=== PATIENT | male | born 1970 | race African-American/Black ===

== ENCOUNTER 2017-03-30 12:33 | Emergency (ER) | payer OTHER ==
[2017-03-30 13:02] VITALS: BP 126/63
[2017-03-30] MEDS ORDERED: Ibuprofen TAB* 600 MG PO ONE (13:29)
--- NOTE | 2017-03-30 14:08 | RAD ---
HISTORY: Chronic right knee pain COMPARISONS: None VIEWS: 4, Frontal, lateral, axial, and oblique views of the right knee FINDINGS: BONE DENSITY: Normal. BONES: There is no displaced fracture. JOINTS: There is no arthropathy. There is no suprapatellar joint effusion or lipohemarthrosis. ALIGNMENT: There is no dislocation. SOFT TISSUES: Unremarkable. OTHER FINDINGS: None. IMPRESSION: NO ACUTE OSSEOUS INJURY. IF SYMPTOMS PERSIST, RECOMMEND REPEAT IMAGING.
[2017-03-30 14:32] LABS: Hematocrit 41 % (42-52); Hemoglobin 13.7 g/dl (14.0-18.0); Mean Corpuscular HGB Conc 34 g/dl (31-36); Mean Corpuscular Hemoglobin 30 pg (27-31); Mean Corpuscular Volume 90 fL (80-94); Mean Platelet Volume 9 um3 (7.4-10.4); Red Blood Count 4.55 10^6/ul (4.0-5.4); Red Cell Distribution Width 13 % (10.5-15); White Blood Count 6.7 10^3/ul (3.5-10.8)
[2017-03-30 14:48] LABS: ALT 13 U/L (7-52); AST 29 U/L (13-39); Alkaline Phosphatase 68 U/L (34-104); Anion Gap 6 mmol/L (2-11); Blood Urea Nitrogen 11 mg/dL (6-24); CO2 Carbon Dioxide 28 mmol/L (22-32); Calcium 9.1 mg/dL (8.6-10.3); Chloride 104 mmol/L (101-111); EGFR African American 102.6 (>60); EGFR Non-African American 79.8 (>60); Globulin 2.9 g/dL (2-4); Glucose 86 mg/dL (70-100); Potassium 4.1 mmol/L (3.5-5.0); Sodium 138 mmol/L (133-145); Total Protein 6.9 g/dL (6.4-8.9)
[2017-03-30 14:58] LABS: Acetaminophen < 15 mcg/mL
--- NOTE | 2017-03-30 15:03 | ED ---
Lower Extremity - HPI Summary HPI Summary: 47M presents with right knee pain for a couple weeks. He has been self medicating with ETOH and Tylenol. He says he has been using a lot of Tylenol. He denies any injury to the area. He has been on his feet more. He states his pain is worst when going up stairs and feels the pain under his knee cap. He denies any numbness or tingling. - History of Current Complaint Chief Complaint: EDExtremityLower Stated Complaint: RT KNEE PAIN Time Seen by Provider: 03/30/17 13:09 Pain Intensity: 8 - Allergies/Home Medications Allergies/Adverse Reactions: Allergies Allergy/AdvReac Type Severity Reaction Status Date / Time No Known Allergies Allergy Verified 04/27/16 12:58 PMH/Surg Hx/FS Hx/Imm Hx Endocrine/Hematology History: Denies: Hx Anticoagulant Therapy Cardiovascular History: Denies: Hx Pacemaker/ICD Respiratory History: Denies: Hx Asthma GI History: Denies: Hx Gall Bladder Disease, Hx Gastroesophageal Reflux Disease History: Denies: Hx Acute Renal Failure, Hx Chronic Renal Failure Sensory History: Denies: Hx Hearing Aid Psychiatric History: Denies: Hx Panic Disorder - Surgical History Surgery Procedure, Year, and Place: none Infectious Disease History: Denies: Traveled Outside the [place] in Last 30 Days - Family History Known Family History: Positive: Diabetes, Other - cancer - Social History Alcohol Use: Rare Substance Use Type: Reports: None Smoking Status (MU): Former Smoker Review of Systems Negative: Fever Negative: Chest Pain Negative: Shortness Of Breath Positive: Myalgia - right knee pain All Other Systems Reviewed And Are Negative: Yes Physical Exam Triage Information Reviewed: Yes Vital Signs On Initial Exam: Initial Vitals Temp Pulse Resp BP Pulse Ox 96.7 F 87 16 126/63 95 03/30/17 13:00 03/30/17 13:00 03/30/17 13:00 03/30/17 13:00 03/30/17 13:00 Vital Signs Reviewed: Yes Appearance: Positive: Well-Appearing Skin: Positive: Warm, Dry Head/Face: Positive: Normal Head/Face Inspection Eyes: Positive: Normal, Conjunctiva Clear Respiratory/Lung Sounds: Positive: Clear to Auscultation, Breath Sounds Present Cardiovascular: Positive: Normal, RRR Musculoskeletal: Positive: Strength/ROM Intact - right knee, Other - neg ballotment, neg anterior and posterior drawer, neg mcmurrphy, good pulses, tender over patella Diagnostics - Vital Signs Vital Signs Temp Pulse Resp BP Pulse Ox 03/30/17 13:00 96.7 F 87 16 126/63 95 - Laboratory Lab Results: Lab Results 03/30/17 03/30/17 Range/Units 14:15 14:15 WBC 6.7 (3.5-10.8) 10^3/ul RBC 4.55 (4.0-5.4) 10^6/ul Hgb 13.7 L (14.0-18.0) g/dl Hct 41 L (42-52) % MCV 90 (80-94) fL MCH 30 (27-31) pg MCHC 34 (31-36) g/dl RDW 13 (10.5-15) % Plt Count 230 (150-450) 10^3/ul MPV 9 (7.4-10.4) um3 Neut % (Auto) 61.3 (38-83) % Lymph % (Auto) 25.2 (25-47) % [place] % (Auto) 12.7 H (1-9) % Eos % (Auto) 0.5 (0-6) % Baso % (Auto) 0.3 (0-2) % Absolute Neuts (auto) 4.1 (1.5-7.7) 10^3/ul Absolute Lymphs (auto) 1.7 (1.0-4.8) 10^3/ul Absolute Monos (auto) 0.8 (0-0.8) 10^3/ul Absolute Eos (auto) 0 (0-0.6) 10^3/ul Absolute Basos (auto) 0 (0-0.2) 10^3/ul Absolute Nucleated RBC 0 10^3/ul Nucleated RBC % 0 Sodium 138 (133-145) mmol/L Potassium 4.1 (3.5-5.0) mmol/L Chloride 104 (101-111) mmol/L Carbon Dioxide 28 (22-32) mmol/L Anion Gap 6 (2-11) mmol/L BUN 11 (6-24) mg/dL Creatinine 1.00 (0.67-1.17) mg/dL Est GFR ( Amer) 102.6 (>60) Est GFR (Non-Af Amer) 79.8 (>60) BUN/Creatinine Ratio 11.0 (8-20) Glucose 86 (70-100) mg/dL Calcium 9.1 (8.6-10.3) mg/dL Total Bilirubin 0.80 (0.2-1.0) mg/dL AST 29 (13-39) U/L ALT 13 (7-52) U/L Alkaline Phosphatase 68 (34-104) U/L Total Protein 6.9 (6.4-8.9) g/dL Albumin 4.0 (3.2-5.2) g/dL Globulin 2.9 (2-4) g/dL Albumin/Globulin Ratio 1.4 (1-3) Acetaminophen < 15 mcg/mL Result Diagrams: 03/30/17 14:15 03/30/17 14:15 Lab Statement: Any lab studies that have been ordered have been reviewed, and results considered in the medical decision making process. Lower Extremity Course/Dx - Course Course Of Treatment: 47M presents with right knee pain for a couple weeks. He has been self medicating with ETOH and Tylenol. He says he has been using a lot of Tylenol. He denies any injury to the area. He has been on his feet more. He states his pain is worst when going up stairs and feels the pain under his knee cap. He denies any numbness or tingling. on exam has full ROM of knee. Tyenlol level normal so is not overdosing. xray normal. discussed limit amount of tyenlol and do not add ETOH with it. suspect patellafemoral syndrome as cause. patient understand and agrees with plan - Diagnoses Differential Diagnosis/HQI/PQRI: Positive: Fracture (Closed), Sprain, Strain Provider Diagnoses: Right knee pain Discharge - Discharge Plan Condition: Good Disposition: HOME Prescriptions: Ibuprofen TAB* [Motrin TAB* 600 MG] 600 mg PO Q6H PRN #25 tab MDD 4 PRN Reason: Pain Patient Education Materials: Knee Pain (ED) Referrals: [facility] [place] [facility]ERR[facility] [Outside] Additional Instructions: Take Tylenol or ibuprofen every 6 hours as needed for pain, max daily dose of ibuprofen is 3200mg and tyenlol is 3000mg Do not combine tyenlol with alcohol Apply ice, rest, elevate Can buy a over the counter brace for knee to wear Follow up with primary care physician Return to ED if develop any new or worsening symptoms
== END 2017-03-30 15:11 | disposition home or self-care (01) ==
LOC: ED 12:33
DX: M25.561 Pain in right knee (principal); Z87.891 Personal history of nicotine dependence
CPT/HCPCS: 36415; 80053; 80329; 85025; 99282; A9270-GY; G0480

== ENCOUNTER 2017-08-25 16:36 | Emergency (ER) | payer OTHER ==
[2017-08-25 16:43] VITALS: BP 151/90
--- NOTE | 2017-08-25 17:55 | ED ---
Lower Extremity - HPI Summary HPI Summary: 47M presents with lumps on foot. He states that has been there for months and have been getting worst. He has not seen anyone about this. He states it hurts when he places pressure on the area. He denies any fever or spreading redness. He denies any history of gout. He states the area has been getting better. He does not have a primary. He is not diabetic. He denies any injury. He denies any numbness or tingling. - History of Current Complaint Chief Complaint: EDExtremityLower Stated Complaint: BUMPS ON TOES BOTH FEET Time Seen by Provider: 08/25/17 17:33 Pain Intensity: 9 - Allergies/Home Medications Allergies/Adverse Reactions: Allergies Allergy/AdvReac Type Severity Reaction Status Date / Time No Known Allergies Allergy Verified 08/25/17 16:41 PMH/Surg Hx/FS Hx/Imm Hx Endocrine/Hematology History: Denies: Hx Anticoagulant Therapy Cardiovascular History: Denies: Hx Pacemaker/ICD Respiratory History: Denies: Hx Asthma GI History: Denies: Hx Gall Bladder Disease, Hx Gastroesophageal Reflux Disease History: Denies: Hx Acute Renal Failure, Hx Chronic Renal Failure Sensory History: Denies: Hx Hearing Aid Psychiatric History: Denies: Hx Panic Disorder - Surgical History Surgery Procedure, Year, and Place: none Infectious Disease History: No Infectious Disease History: Denies: Traveled Outside the [place] in Last 30 Days - Family History Known Family History: Positive: Diabetes, Other - cancer - Social History Alcohol Use: None Substance Use Type: Reports: None Smoking Status (MU): Current Some Day Smoker Review of Systems Negative: Fever Negative: Chest Pain Negative: Shortness Of Breath Positive: Other - lump of feet All Other Systems Reviewed And Are Negative: Yes Physical Exam Triage Information Reviewed: Yes Vital Signs On Initial Exam: Initial Vitals Temp Pulse Resp BP Pulse Ox 98.4 F 82 16 151/90 97 08/25/17 16:41 08/25/17 16:41 08/25/17 16:41 08/25/17 16:41 08/25/17 16:41 Vital Signs Reviewed: Yes Appearance: Positive: Well-Appearing Skin: Positive: Warm, Dry, Other - callus like lesions on right Head/Face: Positive: Normal Head/Face Inspection Eyes: Positive: Normal, Conjunctiva Clear Respiratory/Lung Sounds: Positive: Clear to Auscultation, Breath Sounds Present Cardiovascular: Positive: Normal, RRR Musculoskeletal: Positive: Strength/ROM Intact - feet, Other - good pulses, capillary refill<2secs Neurological: Positive: Normal Psychiatric: Positive: Normal - [place] Coma Scale Coma Scale Total: 15 Diagnostics - Vital Signs Vital Signs Temp Pulse Resp BP Pulse Ox 08/25/17 16:41 98.4 F 82 16 151/90 97 - Laboratory Lab Statement: Any lab studies that have been ordered have been reviewed, and results considered in the medical decision making process. Lower Extremity Course/Dx - Course Course Of Treatment: 47M presents with lumps on foot. He states that has been there for months and have been getting worst. He has not seen anyone about this. He states it hurts when he places pressure on the area. He denies any fever or spreading redness. He denies any history of gout. He states the area has been getting better. He does not have a primary. He is not diabetic. He denies any injury. He denies any numbness or tingling. on exam has callus like lesion on right middle toe, big toe and left 2nd toe. no erythema or edema to area. told to do warm soaks and change footwear. will have follow up with podiatry. patient understand and agrees with plan. - Diagnoses Differential Diagnosis/HQI/PQRI: Positive: Cellulitis, Gout, Other - callus Provider Diagnoses: Callus of foot Discharge - Discharge Plan Condition: Good Disposition: HOME Referrals: [facility] [place] [facility] [Outside] Cory Cota DPM [Doctor of Podiatric Medicine] - Additional Instructions: You appear to have a calluses on your feet Change your foot wear They make over the counter pads that can place on area to protect it Do warm soaks on area and can use pumice stone on area Follow up with primary or podiatry Return to ED if develop any new or worsening symptoms
== END 2017-08-25 18:06 | disposition home or self-care (01) ==
LOC: ED 16:36
DX: L84 Corns and callosities (principal); F17.200 Nicotine dependence, unspecified, uncomplicated
CPT/HCPCS: 99282

== ENCOUNTER 2018-11-16 16:44 | Emergency (ER) | payer OTHER ==
[2018-11-16 16:58] VITALS: BP 153/111
== END 2018-11-16 19:33 | disposition left against medical advice (07) ==
LOC: ED 16:44
DX: L02.413 Cutaneous abscess of right upper limb (principal); Z53.21 Procedure and treatment not carried out due to patient leaving prior to being seen by health care provider

== ENCOUNTER 2018-11-17 09:57 | Emergency (ER) | payer OTHER ==
--- NOTE | 2018-11-17 12:06 | ED ---
Back Pain - History of Current Complaint Chief Complaint: EDRashSkinAbscess Stated Complaint: ABCESS ON ARM Time Seen by Provider: 11/17/18 11:59 Hx Obtained From: Patient Onset/Duration: Sudden Onset, Lasting Days - Last night, Still Present Timing: Constant Back Pain Location: Is Discrete @ - low back, below L5 Severity Currently: Severe Pain Intensity: 10 Pain Scale Used: 0-10 Numeric Aggravating Symptom(s): Movement Alleviating Symptom(s): Nothing Associated Signs And Symptoms: Positive: Other - pain to her thighs Related History: Previous Back Injury - bulge between L4 and L5 - Allergies/Home Medications Allergies/Adverse Reactions: Allergies Allergy/AdvReac Type Severity Reaction Status Date / Time No Known Allergies Allergy Verified 11/17/18 10:04 PMH/Surg Hx/FS Hx/Imm Hx Endocrine/Hematology History: Reports: Autoimmune Disease - Lupus Denies: Hx Anticoagulant Therapy Cardiovascular History: Denies: Hx Pacemaker/ICD Respiratory History: Denies: Hx Asthma GI History: Denies: Hx Gall Bladder Disease, Hx Gastroesophageal Reflux Disease History: Denies: Hx Acute Renal Failure, Hx Chronic Renal Failure Musculoskeletal History: Reports: Hx Back Problems - bulge between L4 and L5 Sensory History: Denies: Hx Hearing Aid Psychiatric History: Denies: Hx Panic Disorder - Surgical History Surgery Procedure, Year, and Place: none Infectious Disease History: No Infectious Disease History: Denies: Traveled Outside the [place] in Last 30 Days - Family History Known Family History: Positive: Diabetes, Other - cancer - Social History Alcohol Use: None Hx Substance Use: No Substance Use Type: Reports: None Hx Tobacco Use: Yes Smoking Status (MU): Current Some Day Smoker Review of Systems Negative: Fever Genitourinary: Negative Positive: Myalgia - low back radiating to her thighs All Other Systems Reviewed And Are Negative: Yes Physical Exam Vital Signs On Initial Exam: Initial Vitals Temp Pulse Resp BP Pulse Ox 98.3 F 61 16 150/100 97 11/17/18 10:01 11/17/18 10:01 11/17/18 10:01 11/17/18 10:01 11/17/18 10:01 Diagnostics - Vital Signs Vital Signs Temp Pulse Resp BP Pulse Ox 11/17/18 10:01 98.3 F 61 16 150/100 97 - Laboratory Lab Statement: Any lab studies that have been ordered have been reviewed, and results considered in the medical decision making process. Discharge - Discharge Plan Referrals: Krystina Angeles MD [Primary Care Provider] - - Attestation Statements Document Initiated by Scribe: Yes Documenting Scribe: Teresa Jesus Provider For Whom Scribe is Documenting (Include Credential): Hossein Manrique MD Scribe Attestation: Teresa Vivar, scribed for Hossein Manrique MD on 11/17/18 at 1204.
--- NOTE | 2018-11-17 12:21 | ED ---
Skin Complaint - HPI Summary HPI Summary: Pt is a 48 y/o male who presents to the ED c/o abscess. Hes had a painful abscess in his right axilla for the past 4-5 days. He came to the ED yesterday but left without being seen after waiting 3 hours. Pt notes that yesterday the abscess was draining. The pain is currently rated a 10/10 in severity. He denies any fever. Pt is a smoker. - History of Current Complaint Chief Complaint: EDRashSkinAbscess Time Seen by Provider: 11/17/18 11:59 Stated Complaint: ABCESS ON ARM Hx Obtained From: Patient Onset/Duration: Started Days Ago - 4-5, Still Present Timing: Constant Current Severity: Severe Pain Intensity: 10 Pain Scale Used: 0-10 Numeric Skin Location: Other: - right axilla Character: Pain Aggravating Symptom(s): Nothing Alleviating Symptom(s): Nothing Associated Signs & Symptoms: Drainage - Allergy/Home Medications Allergies/Adverse Reactions: Allergies Allergy/AdvReac Type Severity Reaction Status Date / Time No Known Allergies Allergy Verified 11/17/18 10:04 PMH/Surg Hx/FS Hx/Imm Hx Endocrine/Hematology History: Denies: Hx Anticoagulant Therapy Cardiovascular History: Denies: Hx Pacemaker/ICD Respiratory History: Denies: Hx Asthma GI History: Denies: Hx Gall Bladder Disease, Hx Gastroesophageal Reflux Disease History: Denies: Hx Acute Renal Failure, Hx Chronic Renal Failure Psychiatric History: Denies: Hx Panic Disorder - Surgical History Surgery Procedure, Year, and Place: none Infectious Disease History: No Infectious Disease History: Denies: Traveled Outside the [place] in Last 30 Days - Family History Known Family History: Positive: Hypertension, Diabetes, Other - cancer - Social History Alcohol Use: None Hx Substance Use: No Substance Use Type: Reports: None Hx Tobacco Use: Yes Smoking Status (MU): Current Some Day Smoker Review of Systems Negative: Fever Positive: Other - abscess with drainage right axilla All Other Systems Reviewed And Are Negative: Yes Physical Exam - Summary Physical Exam Summary: Appearance: Well appearing, no pain distress Skin: warm, dry, reflects adequate perfusion, erythema, redness, and pointing fluctuance in several confluent areas in right axilla, 3 cm area of induration, surrounding lymphadenopathy Head/face: normal Eyes: EOMI, ELDA ENT: mucous membranes moist Neck: supple, non-tender Respiratory: CTA, breath sounds present Cardiovascular: RRR, pulses symmetrical Abdomen: non-tender, soft Bowel Sounds: present Musculoskeletal: normal, strength/ROM intact Neuro: normal, sensory motor intact, A&Ox3 Triage Information Reviewed: Yes Vital Signs On Initial Exam: Initial Vitals Temp Pulse Resp BP Pulse Ox 98.3 F 61 16 150/100 97 11/17/18 10:01 11/17/18 10:01 11/17/18 10:01 11/17/18 10:01 11/17/18 10:01 Vital Signs Reviewed: Yes Procedures - Incision and Drainage Right Axilla Site: Right axilla, small amount of non-purulent material Anesthesia: Lidocaine - 5cc 1% Instrument(s): Scalpel - 11 blade Packing: Gauze - Iodoform Diagnostics - Vital Signs Vital Signs Temp Pulse Resp BP Pulse Ox 11/17/18 10:01 98.3 F 61 16 150/100 97 - Laboratory Lab Statement: Any lab studies that have been ordered have been reviewed, and results considered in the medical decision making process. Course/Dx - Course Course Of Treatment: Nurse's notes reviewed. Patient with some drainage from axillary abscess. Formally incised and drained here. Started antibiotics. Packed with gauze. Follow-up for wound care. - Differential Diagnoses - Skin Complaint Differential Diagnoses: Other - MRSA, simple bacterial abscess - Diagnoses Provider Diagnoses: Axillary abscess Discharge - Sign-Out/Discharge Documenting (check all that apply): Patient Departure - Discharge Patient Received Moderate/Deep Sedation with Procedure: No - Discharge Plan Condition: Improved Disposition: HOME Prescriptions: Clindamycin Cap(NF) [Clindamycin Cap 300 mg Cap(NF)] 300 mg PO TID #20 cap HYDROcodone/ACETAMIN 5-325 MG* [[place] 5-325 TAB*] 1 tab PO Q6H PRN #8 tab MDD 4 PRN Reason: for more severe pain Patient Education Materials: Abscess (ED) Referrals: Krystina Angeles MD [Primary Care Provider] - Additional Instructions: Call your doctor today to schedule wound recheck in 2 days' time. Packing can be removed then. Return with fever, increased drainage, worse, new symptoms or other concerns. Take antibiotics until gone. Tylenol, ibuprofen for baseline pain. - Billing Disposition and Condition Condition: IMPROVED Disposition: Home - Attestation Statements Document Initiated by Rachel: Yes Documenting Scribe: Teresa Jesus Provider For Whom Scribe is Documenting (Include Credential): Hossein Manrique MD Scribe Attestation: ITeresa, scribed for Hossein Manrique MD on 11/17/18 at 1534. Scribe Documentation Reviewed: Yes Provider Attestation: The documentation as recorded by the scribeTeresa accurately reflects the service I personally performed and the decisions made by Hossein gann MD Status of Scribe Document: Viewed
[2018-11-17] MEDS ORDERED: HYDROcodone/ACETAMIN 5-325 MG* 1 TAB PO ONE (12:26)
[2018-11-17] MEDS ORDERED: Naproxen TAB* 250 MG PO ONE (12:26)
[2018-11-17] MEDS ORDERED: Naproxen TAB* 250 MG ONE (13:04)
[2018-11-17 13:06] VITALS: BP 144/103
== END 2018-11-17 13:09 | disposition home or self-care (01) ==
LOC: ED 09:57
DX: L02.411 Cutaneous abscess of right axilla (principal); Z72.0 Tobacco use
CPT/HCPCS: 10060; 99282; A9270-GY

== ENCOUNTER 2019-10-14 21:35 | Emergency (ER) | payer OTHER ==
[2019-10-14 21:43] VITALS: BP 125/99
[2019-10-15] MEDS ORDERED: NS 0.9% 1000 ML** 1,000 ML IV ONE (00:48)
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
[2019-10-15] MEDS ORDERED: Bacitracin OINTMENT* 0.5% 0.5 oz TUBE ONE (01:57)
[2019-10-15] MEDS ORDERED: Bacitracin OINTMENT* 0.5% 0.5 oz TUBE TOPICAL ONE (06:00)
== END 2019-10-15 00:51 | disposition home or self-care (01) ==
LOC: ED 21:35
DX: T22.011A Burn of unspecified degree of right forearm, initial encounter (principal); T20.02XA Burn of unspecified degree of lip(s), initial encounter; X10.2XXA Contact with fats and cooking oils, initial encounter; Y92.9 Unspecified place or not applicable; Z72.0 Tobacco use
CPT/HCPCS: 99282; A9270-GY

== ENCOUNTER 2019-12-28 15:27 | Emergency (ER) | payer OTHER ==
[2019-12-28 15:54] VITALS: BP 163/106
--- NOTE | 2019-12-28 16:25 | UC ---
Bite Injury/Animal HPI - HPI Summary HPI Summary: 49-year-old male comes in with a chief complaint of a tick on the left side of his chest. He noticed something irritating that area for the last couple of days. Today when he looked in the mirror he recognized that it was a tick attached. He scraped it quite a bit he is not sure if he got out of the skin. Fevers no chills no bull's-eye rash. Feels well otherwise. - History of Current Complaint Chief Complaint: UCGeneralIllness Stated Complaint: TICK ON SIDE Time Seen by Provider: 12/28/19 15:51 Pain Intensity: 0 - Allergies/Home Medications Allergies/Adverse Reactions: Allergies Allergy/AdvReac Type Severity Reaction Status Date / Time No Known Allergies Allergy Verified 12/28/19 15:44 Home Medications: Home Medications Nicotine PATCH 21 MG/24 HR* 21 mg TRANSDERM DAILY 12/03/19 [History Confirmed ] amLODIPine TAB* [Norvasc 5 mg TAB*] 5 mg PO DAILY 12/09/19 [History Confirmed ] DOXYcycline CAP(*) [DOXYcycline 100MG CAP(*)] 200 mg PO ONCE #2 cap 12/28/19 [Rx ] PMH/Surg Hx/FS Hx/Imm Hx Previously Healthy: Yes Cardiovascular History: Hypertension Other History Of: Negative For: Anticoagulant Therapy - Surgical History Surgical History: Yes Surgery Procedure, Year, and Place: none - Family History Known Family History: Positive: Hypertension, Diabetes, Other - cancer - Social History Alcohol Use: None Substance Use Type: None Smoking Status (MU): Former Smoker Review of Systems All Other Systems Reviewed And Are Negative: Yes Constitutional: Positive: Negative Skin: Positive: Other - SEE HPI Eyes: Positive: Negative ENT: Positive: Negative Respiratory: Positive: Negative Cardiovascular: Positive: Negative Gastrointestinal: Positive: Negative Motor: Positive: Negative Neurovascular: Positive: Negative Musculoskeletal: Positive: Negative Neurological/Mental Status: Positive: Negative Psychological: Positive: Negative Is Patient Immunocompromised?: No Physical Exam Triage Information Reviewed: Yes Appearance: Well-Appearing, No Pain Distress, Well-Nourished Vital Signs: Initial Vital Signs Temp 98.1 F 12/28/19 15:53 Pulse 79 12/28/19 15:53 Resp 18 12/28/19 15:53 BP 163/106 12/28/19 15:53 Pulse Ox 97 03/30/20 15:53 Vital Signs Reviewed: Yes Eye Exam: Normal Eyes: Positive: Conjunctiva Clear Neck: Positive: Supple Respiratory: Positive: No respiratory distress Musculoskeletal: Positive: Strength Intact, ROM Intact Neurological: Positive: Alert Psychological: Positive: Age Appropriate Behavior Skin: Positive: Other - In the skin of the left chest is a 4 mm area of scab with a black foreign body of 1 mm in the middle. No bull's-eye rash. The Surrounding erythema is 5 mm radius. Bite Injury Course/Dx - Course Course Of Treatment: No bull's-eye rash no areas of cellulitis no signs or symptoms of Lyme disease. Going to treat with doxycycline 200 mg single dose. I let the patient know that if he develops bull's-eye rash or cellulitis or fevers chills or any signs of Lyme disease he is here reevaluated and get treated for Lyme disease. - Differential Dx/Diagnosis Provider Diagnosis: Tick bite of chest wall Discharge ED - Sign-Out/Discharge Documenting (check all that apply): Patient Departure All imaging exams completed and their final reports reviewed: No Studies - Discharge Plan Condition: Stable Disposition: HOME Prescriptions: DOXYcycline CAP(*) [DOXYcycline 100MG CAP(*)] 200 mg PO ONCE #2 cap Patient Education Materials: Tick Bite (ED) Referrals: Krystina Angeles MD [Primary Care Provider] - Additional Instructions: FOLLOW UP WITH YOUR DOCTOR IF NOT COMPLETELY IMPROVED. GET REEVALUATED IF NOT IMPROVED OR WORSE; RASH, BULLS EYE RASH, FEVER, YOU FEEL ILL, SIGNS OF LYME DISEASE OR ANY QUESTIONS OR CONCERNS. - Billing Disposition and Condition Condition: STABLE Disposition: Home
== END 2019-12-28 16:30 | disposition home or self-care (01) ==
LOC: UCEAST 15:27
DX: S20.362A Insect bite (nonvenomous) of left front wall of thorax, initial encounter (principal); W57.XXXA Bitten or stung by nonvenomous insect and other nonvenomous arthropods, initial encounter; Y92.9 Unspecified place or not applicable; I10 Essential (primary) hypertension; Z79.899 Other long term (current) drug therapy; Z87.891 Personal history of nicotine dependence
CPT/HCPCS: 99212; G0463